=== PATIENT | female | born 1950 | race Caucasian/White ===

== ENCOUNTER → 2018-08-04 | Outpatient (CLI) | payer OTHER ==
--- NOTE | 2018-08-04 16:31 | US ---
EXAM DESCRIPTION: Breast,Right: Ultrasound CLINICAL HISTORY: 68 yearsFemaleLUMP IN BREAST anterior right breast superior. COMPARISON: Bilateral digital breast tomosynthesis, diagnostic type mammogram on this visit. TECHNIQUE: Transcutaneous scanning of the anterior right breast utilizing hines-scale and Doppler modes. Skin marker on the region of interest. Scanning performed by the manufacturing engineer chief and Dr. Lepe. FINDINGS: Scanning of the anterior right breast with emphasis on the 1200 clock position 4 cm from the nipple. This is where the skin marker is located. Mostly heterogeneous fibroglandular echotexture. Posterior to the marker are large calcifications with significant acoustic shadowing. These correspond to a large group of large coarse calcifications in the superior central right breast. No distinct solid mass or cyst. No parenchymal edema. No overlying skin changes. No abnormal vascularity. IMPRESSION: 1. Bi-Rads Category 2: Benign. 2. Please refer to bilateral diagnostic digital breast tomosynthesis mammogram and report on this visit. The FINDINGS and the FOLLOW-UP plan were reviewed in person with the patient after the examination. Written communication explaining the IMPRESSION and FOLLOW-UP will be mailed to the patient and referring care provider. Electronically signed by: Shawn Lepe MD 08/04/2018 4:30 PM CDT
--- NOTE | 2018-08-04 16:40 | MAM ---
EXAM DESCRIPTION: 3D Diagnostic, Bilateral: Digital Mammography CLINICAL HISTORY: 68 yearsFemaleUNSPECIFIED LUMP IN BREAST . Palpable mass superior anterior right breast.. No personal history or family history of breast cancer. Childbirth. Postmenopausal. Currently on HRT. Prior cyst aspiration and benign biopsy left breast. Lifetime risk of developing breast cancer (Tyrer-Cuzick model) percentage is 6.8 COMPARISON: Prior 2-D digital screening study 09/30/2016.. Targeted right breast ultrasound if this examination.. TECHNIQUE: Bilateral CC LM MLO projection full-field images, digital mammographic tomosynthesis technique. CAD not utilized. Skin marker superior lateral anterior right breast. FINDINGS: The breast parenchymal density pattern is: Heterogeneously dense breast tissue, which may obscure small masses. No skin thickening or nipple retraction Large cluster of coarse calcifications at the 1200 clock position of the right breast posterior third approximately 8 to 10 cm from the nipple. Stable since the prior study. Second large posterior closer to the axillary tail of the breast has increased in number since the prior study. Multiple solitary coarse calcifications in the left breast. Right breast is denser than the left. Slight increase in coarse calcifications on the left as well. Bilateral nodules are fatty density mixed with the dense fibroglandular tissues. No new focal, stellate mass or density, focal asymmetry , and no suspicious microcalcifications bilaterally. ULTRASOUND: Scanning of the anterior right breast with emphasis on the 1200 clock position 4 cm from the nipple. This is where the skin marker is located. Mostly heterogeneous fibroglandular echotexture. Posterior to the marker are large calcifications with significant acoustic shadowing. These correspond to a large group of large coarse calcifications in the superior central right breast. No distinct solid mass or cyst. No parenchymal edema. No overlying skin changes. No abnormal vascularity. IMPRESSION: Benign exam. BIRAD CATEGORY: 2 BENIGN FINDINGS. RECOMMENDATIONS: FOLLOW UP: Routine digital bilateral screening, one year interval from August 2018. The FINDINGS and the FOLLOW-UP plan were reviewed in person with the patient after the examination. Written communication explaining the IMPRESSION and FOLLOW-UP will be mailed to the patient and referring care provider. According to the [employer], yearly mammograms are recommended starting at age 40 and continuing as long as a woman is in good health. Any breast change noted on a breast self-exam should be reported promptly to the patient's healthcare provider. Breast MRI is recommended for women with an approximately 20-25% or greater lifetime risk of breast cancer, including women with a strong family history of breast or ovarian cancer and women who have been treated for Hodgkin's disease. A negative mammographic report should not delay tissue diagnosis in patients with significant clinical history or physical findings. Extremely dense breast tissue limits the sensitivity of digital mammography. Electronically signed by: Shawn Lepe MD 08/04/2018 4:39 PM CDT
== END ==
LOC: MAMMO 11:02
PROVIDERS: ATTEND Obstetrics & Gynecology
DX: N63.11 Unspecified lump in the right breast, upper outer quadrant (principal)
CPT/HCPCS: 76641; 77066; G0279

== ENCOUNTER 2018-10-14 10:00 | Inpatient (IN) | payer OTHER ==
[2018-10-14] MEDS ORDERED: SODIUM CHLORIDE 0.9% 1000ML 1,000 ML IVS ONE (10:16)
--- NOTE | 2018-10-14 10:19 | ED.PDOC ---
History of Present Illness - General Chief Complaint: GI Problem Stated Complaint: Nausea Time Seen by Provider: 10/14/18 10:02 Information Source: patient, EMS Exam Limitations: no limitations - History of Present Illness Initial Comments: patient comes in for severe nausea and "just not feeling well" via EMS. Patient had ankle surgery 8 days ago and since then has been on pain medications and had been tried on a medication for nausea. Patient states her pain is moderate at this time even on the pain medication but was told that she couldn't stop the medicine. She is having a difficult time with constipation and last bowel movement was 2-3 days ago. Patient states she has generalized abdominal discomfort and just feels awful. She has not been eating well but has had no emesis. She states she is having severe nausea. Patient does not have any fever, chills, cough or cold symptoms. She doesn't have any chest pain or shortness of breath. Patient has a difficult time giving a complete history and often gets distracted and will ask for her to answer the questions although he is not currently here she states when he gets here he'll no Y her medicines are and where her medical problems are. Patient is able to say that she has high blood pressure, cholesterol, thyroid, and GERD. Patient is unsure of the medication she is taking for pain or the medicine for nausea that "made the symptoms worse". Patient was seen by her orthopedic doctor on Wednesday at that time he felt like she was healing well. She cannot say why she had ankle surgery but knows she did not have a fracture and does not have osteoarthritis. Abdominal Pain Onset Location: generalized abdomen Pain Radiation: no radiation Quality: mild Timing/Duration: 1 week Improving Factors: nothing Worsening Factors: nothing Associated Symptoms: nausea/vomiting Review of Systems - Review of Systems Constitutional: States: weakness. Denies: chills, fever EENTM: States: no symptoms reported. Denies: blurred vision, ear pain, nose pain, throat pain Respiratory: States: no symptoms reported. Denies: cough, short of breath, wheezing Cardiology: States: no symptoms reported. Denies: chest pain, edema, palpitations Gastrointestinal/Abdominal: States: see HPI, constipation, nausea Genitourinary: States: no symptoms reported. Denies: discharge, dysuria, frequency, hematuria Musculoskeletal: States: see HPI Past Medical History (General) - Patient Medical History Hx Stroke: No Hx Congestive Heart Failure: No Hx Hypertension: Yes Hx Thyroid Disease: Yes Hx Diabetes: Yes Hx Gastroesophageal Reflux: Yes - Vaccination History Hx Tetanus, Diphtheria Vaccination: No Hx Influenza Vaccination: No Hx Pneumococcal Vaccination: No - Social History Hx Tobacco Use: No Family Medical History - Family History Mother Family History: No Known Living Status: Physical Exam - Physical Exam General Appearance: Alert, Anxious Eyes, Ears, Nose, Throat Exam: PERRL/EOMI, normal ENT inspection, TMs normal, pharynx normal Neck: non-tender, full range of motion, supple, normal inspection Respiratory: chest non-tender, lungs clear, normal breath sounds Cardiovascular/Chest: normal peripheral pulses, regular rate, rhythm, no edema, no murmur Peripheral Pulses: No deficit Gastrointestinal/Abdominal: normal bowel sounds, non tender, soft, no organomegaly, no pulsatile mass Extremity: other - L ankle with healing incision to above the lateral malleolus no erythema, no edema, no calor Neurologic: alert, oriented x 3 Progress - Progress Progress: 10/14/18 10:51 after patient's arrived and some IVF patient is much more focused. Her brings medication list and she has been on hydrocodone and zofran since the surgery. Patient's last dose was last night and she states she does not need or want anything for pain just to help with the nausea. 10/14/18 12:01 patient with severe hyponatremia, doing better after IV 3%NS but will NA of 119 will admit. - Results/Orders Results/Orders: Patient Name: MARIA M BRIZUELA Gender: Female Date of : 1950 Referring Physician: TITO CORDERO Organization: [facility] Accession Number: [id number] Requested Date: October 14, 2018 10:16 Report Status: Final Requested Procedure: 1 Procedure Description: Abdomen Flat Upright Modality: CR Findings Reporting MD: Genaro López Fellow MD: Not available Dictation Time: Bridge Ironworker Helper: Not available Octave Board Racker Date: EXAM DESCRIPTION: Abdomen Flat Upright CLINICAL HISTORY: 68 years Female, nausea/pain COMPARISON: None. FINDINGS: There is no free subdiaphragmatic gas or intra-abdominal air-fluid level. There is a moderate amount of colonic stool and gas. No dilated small bowel loops. A few small pelvic calcifications probably represent phleboliths. No concerning bone lesion. IMPRESSION: Moderate amount of colonic stool and gas without obstruction or pneumoperitoneum. Probable pelvic phleboliths. If clinically suspicious of a ureteral calculus, noncontrast CT should be considered. 10/14/18 10:16 URINALYSIS Stat 10/14/18 10:30 EKG STAT Laboratory Results WBC 5.9 K/mm3 (4.8-10.8) 10/14/18 10:30 RBC 4.86 M/mm3 (4.20-5.40) 10/14/18 10:30 Hgb 16.1 gm/dL (12.0-16.0) H 10/14/18 10:30 Hct 45.2 % (36.0-47.0) 10/14/18 10:30 MCV 93.0 fl (81.0-99.0) 10/14/18 10:30 MCH 33.1 pg (27.0-31.0) H 10/14/18 10:30 MCHC 35.6 g/dL (33.0-37.0) 10/14/18 10:30 RDW 12.1 % (11.5-14.5) 10/14/18 10:30 Plt Count 428 K/mm3 (130-400) H 10/14/18 10:30 MPV 6.3 fl (7.40-10.4) L 10/14/18 10:30 Absolute Neuts (auto) 4.20 K/uL (1.8-6.8) 10/14/18 10:30 Absolute Lymphs (auto) 1.00 K/uL (1.0-3.4) 10/14/18 10:30 Absolute Monos (auto) 0.60 K/uL (0.2-0.8) 10/14/18 10:30 Absolute Eos (auto) 0.00 K/uL (0.0-0.4) 10/14/18 10:30 Absolute Basos (auto) 0.10 K/uL (0.0-0.1) 10/14/18 10:30 Neutrophils % 70.5 % (42.0-78.0) 10/14/18 10:30 Lymphocytes % 17.0 % (20.0-50.0) L 10/14/18 10:30 Monocytes % 10.9 % (2.0-9.0) H 10/14/18 10:30 Eosinophils % 0.7 % (1.0-5.0) L 10/14/18 10:30 Basophils % 0.9 % (0.0-2.0) 10/14/18 10:30 Sodium 119 mmol/L (135-145) L* 10/14/18 10:30 Potassium 3.3 mmol/L (3.6-5.0) L 10/14/18 10:30 Chloride 80 mmol/L (101-111) L 10/14/18 10:30 Carbon Dioxide 24 mmol/L (21-31) 10/14/18 10:30 Anion Gap 18.3 (12-18) H 10/14/18 10:30 BUN 6 mg/dL (7-18) L 10/14/18 10:30 Creatinine 0.51 mg/dL (0.6-1.3) L 10/14/18 10:30 BUN/Creatinine Ratio 11.8 (10-20) 10/14/18 10:30 Random Glucose 112 mg/dL (70-105) H 10/14/18 10:30 Serum Osmolality 238.7 mOsm/L (275-295) L* 10/14/18 10:30 Calcium 9.5 mg/dL (8.4-10.2) 10/14/18 10:30 Total Bilirubin 1.0 mg/dL (0.2-1.0) 10/14/18 10:30 AST 29 IU/L (10-42) 10/14/18 10:30 ALT 25 IU/L (10-60) 10/14/18 10:30 Alkaline Phosphatase 53 IU/L (42-121) 10/14/18 10:30 Creatine Kinase 47 IU/L (26-140) 10/14/18 10:30 CK-MB (CK-2) 0.8 ng/mL (0.0-4.4) 10/14/18 10:30 CK-MB (CK-2) % Not Reportable 10/14/18 10:30 Troponin I < 0.02 ng/mL (0.01-0.05) 10/14/18 10:30 Serum Total Protein 7.9 gm/dL (6.4-8.2) 10/14/18 10:30 Albumin 4.8 g/dl (3.2-5.5) 10/14/18 10:30 Globulin 3.1 gm/dL (2.3-3.5) 10/14/18 10:30 Albumin/Globulin Ratio 1.5 (1.1-1.9) 10/14/18 10:30 - EKG/XRAY/CT EKG: Sinus, no ST T wave changes Comments: slight left axis deviation HR of 74 with mild prolongation QTC 492 Departure - Departure Clinical Impression: Hyponatremia Disposition: Admit Patient Departure Forms: ED Discharge - Pt. Copy, Patient Portal Self Enrollment Referrals: Patricio Self MD [Primary Care Provider] - 1-2 Weeks Home Medications: Ambulatory Orders Dexlansoprazole [Dexilant] 60 mg PO DAILY 10/14/18 Estradiol [Estrace] 1 mg PO DAILY 10/14/18 Hydrocodone-Acetaminophen [[place] 7.5-325 mg] 1 tab PO Q6HR PRN 10/14/18 Levothyroxine Sodium 25 mcg PO DAILY 10/14/18 Medroxyprogesterone Acetate [Medroxyprogesterone Aceta] 2.5 mg PO DAILY 10/14/18 Metformin HCl 500 mg PO DAILY 10/14/18 Ondansetron [Ondansetron Odt] 4 mg SL Q8H PRN 10/14/18 Pravastatin Sodium 20 mg PO DAILY 10/14/18 Quetiapine Fumarate 100 mg PO BEDTIME 10/14/18 Decision To Admit - Decistion To Admit Decision to Admit Reason: Admit from ER Decision to Admit Date: 10/14/18 Decision to Admit Time: 12:02
--- NOTE | 2018-10-14 10:45 | RAD ---
EXAM DESCRIPTION: Abdomen Flat Upright CLINICAL HISTORY: 68 years Female, nausea/pain COMPARISON: None. FINDINGS: There is no free subdiaphragmatic gas or intra-abdominal air-fluid level. There is a moderate amount of colonic stool and gas. No dilated small bowel loops. A few small pelvic calcifications probably represent phleboliths. No concerning bone lesion. IMPRESSION: Moderate amount of colonic stool and gas without obstruction or pneumoperitoneum. Probable pelvic phleboliths. If clinically suspicious of a ureteral calculus, noncontrast CT should be considered. Electronically signed by: Genaro López MD 10/14/2018 10:44 AM [facility]
[2018-10-14] MEDS ORDERED: METOCLOPRAMIDE HCL INJ 10 MG/2 ML VIAL IV ONE (10:51)
[2018-10-14] MEDS ORDERED: SOD CHL 3% *HYPERTONIC* 500ML 100 ML IVS ONE (11:23)
--- NOTE | 2018-10-14 12:14 | HP ---
SUPERVISING PHYSICIAN: Elias Zimmerman M.D. CHIEF COMPLAINT: Nausea and confusion. HISTORY OF PRESENT ILLNESS: This is a 68 year-old female patient who came to the Emergency Room via EMS for severe nausea and just not feeling well. She had ankle surgery in [place] approximately 7 to 8 days ago and since that time she has been on pain medication and a medication for nausea. Her pain was moderate at that time but she was told that she could not stop the medication. She also had some complaints of constipation. While in the Emergency Room she was confused and often could not answer questions asked of her. She could not remember the reason she had ankle surgery and her had to answer many of her questions. She could say that she had high blood pressure, high cholesterol, hypothyroidism and acid reflux. She was unsure of the medications but they just seemed to make it worse. Although she was very nauseated and she could not stomach food, she only vomited 2 or 3 times. She was unable to take fluids. She has become more and more confused as well as weaker and weaker. She has not had any weightbearing on her left foot for 4 weeks. In the Emergency Room an abdominal x-ray was done which showed a moderate amount of colonic stool and gas without obstruction or pneumoperitoneum with probable pelvic phleboliths. If clinically suspicious of ureteral calculus, noncontrast CT should be considered. Lab was done and her sodium was 119 with potassium 3.3, chloride 80, anion gap 18.3, BUN 6, creatinine 0.51, glucose 112, serum osmolality 238.7. Cardiac enzymes were negative. Liver enzymes were within normal limits. CBC was basically within normal limits. Hemoglobin was high at 16.1. In the Emergency Room she was given some hypertonic saline as well as a liter of fluid. I was called for hospital admission. After her admission to the floor and after she received her hypertonic saline, she no longer has any confusion. She has had no nausea since she has been admitted to the floor. She has required no pain medications or antiemetics. PAST MEDICAL HISTORY: 1. Hypertension. 2. Hyperlipidemia. 3. Hypothyroidism. 4. Diabetes mellitus type 2. 5. Gastroesophageal reflux disease. PAST SURGICAL HISTORY: 1. Left ankle surgery approximately a week ago. 2. Tonsillectomy. OUTPATIENT MEDICATIONS: 1. Dexilant. 2. Zofran. 3. Estradiol. 4. Hydrocodone. 5. Levothyroxine. 6. Medroxyprogesterone. 7. Metformin. 8. Pravastatin. 9. Quetiapine Fumarate. ALLERGIES: NO KNOWN DRUG ALLERGIES. SOCIAL HISTORY: She lives at [facility]. She denies any tobacco use. She drinks alcohol socially and she denies any illicit drug use. REVIEW OF SYSTEMS: GENERAL: Denies fever, fatigue or weight changes. HEENT: Negative for vision changes, ear pain, sore throat or sinus symptoms. RESPIRATORY: Negative for coughing, wheezing or shortness of breath. CARDIAC: Negative for chest pain, palpitations or tachycardia. GASTROINTESTINAL: As per History of Present Illness including constipation and nausea. GENITOURINARY: Negative for dysuria, hematuria or polyuria. MUSCULOSKELETAL: Positive for weakness as well as recent left ankle surgery. Negative for myalgias or arthralgias. SKIN: Negative for lesions or rashes. PHYSICAL EXAMINATION: VITAL SIGNS: Temperature 98.4, heart rate 76, blood pressure 119/70, respiratory rate 20, O2 sat is 97% on room air. GENERAL: This is a 68 year-old female patient who is lying in her hospital bed. She is in no acute distress. HEENT: Normocephalic and atraumatic. Pupils are equal and reactive. Oropharynx is dry. NECK: Supple without mass. RESPIRATORY: Clear to auscultation bilaterally. CHEST: There is equal rise and fall of the chest with inspiration and expiration. CARDIOVASCULAR: Regular rate and rhythm. GASTROINTESTINAL: Abdomen is soft, nondistended, non-tender. Bowel sounds are positive. EXTREMITIES: She has a left ankle with a healing incision to above the lateral malleolus. No erythema. No edema. Right lower extremity has no cyanosis, clubbing, or edema. NEUROLOGIC: She is awake, alert and oriented times three. LABORATORY: Followup labs after she came to the floor showed sodium 127, potassium 3.3, chloride 95, anion gap 10.3, BUN less than 5, creatinine 0.51, glucose 125, serum osmolality 253.3, calcium 8.3, magnesium 1.5. All other labs and films are per the History of Present Illness and the EMR and have been reviewed. ASSESSMENT: 1. Severe hyponatremia most likely secondary to poor oral intake, medications and the severe nausea with occasional vomiting. 2. Severe nausea, dehydration and occasionally emesis most likely secondary to pain medications. 3. Recent left ankle surgery approximately 1 week ago. 4. Gastroesophageal reflux disease. 5. Diabetes mellitus type 2. 6. Hypertension. 7. Hypothyroidism. 8. Constipation. 9. Mild hypokalemia and hypomagnesemia. PLAN: We will admit the patient to the hospital. She will be on fluid restrictions. She has gotten normal saline with potassium running at 125 mL per hour. She has had no complaints of nausea since being in the hospital and she has tolerated her food without difficulty, but we have antiemetics as needed. I initially had consulted Physical Therapy for her ankle but she said there is no weightbearing and she was very hesitant to have any therapy on it, so I have discontinued that. Will reevaluate in the morning. She has a PPI for ulcer prophylaxis. I have done blood sugars a.c. and h.s. with sliding scale Humalog insulin coverage. I have restarted her home medications. I have also given her some Milk of Magnesia for the constipation and put her on daily MiraLAX. She received 2 grams of magnesium replacement. There is potassium in her IV fluids. I will recheck her labs in the morning. I have also put her on Lovenox for DVT prophylaxis. Will continue to monitor her closely and follow as needed. Dr. Zimmerman is the collaborating physician available for consultation. #[id number] [facility]
[2018-10-14] MEDS ORDERED: SODIUM CHLORIDE 0.9% 1000ML 1,000 ML IVS PRN (13:06)
[2018-10-14] MEDS ORDERED: ONDANSETRON INJ 4 MG/2 ML VIAL IV PRN (14:47)
[2018-10-14] MEDS ORDERED: SODIUM CHLORIDE 0.9% (FLUSH) 10 ML SYG IV PRN (14:47)
[2018-10-14] MEDS ORDERED: HYDROcodone 7.5MG/APAP 325MG 1 EA TAB PO PRN (14:50)
[2018-10-14] MEDS ORDERED: GLUCAGON INJ 1 MG VIAL SUBCU PRN (14:51)
[2018-10-14] MEDS ORDERED: DEXTROSE 50% 25 GM/50 ML SYG IV PRN (14:51)
[2018-10-14] MEDS ORDERED: MAGNESIUM SULFATE PREMIX 2GM 2 GM in PREMIX BAG 1 BAG IVPB ONE (15:45)
[2018-10-14] MEDS ORDERED: MAGNESIUM SULFATE PREMIX 2GM 50 ML IVPB ONE (16:37)
[2018-10-14] MEDS: PANTOPRAZOLE SODIUM IV 40 MG VIAL IV SCH (17:10)
[2018-10-14] MEDS: KCL 20 MEQ/NS 1,000 ML IVS PRN (17:11)
[2018-10-14] MEDS: ENOXAPARIN SODIUM 40 MG/0.4 ML SYG SUBCU SCH (17:26)
[2018-10-14] MEDS ORDERED: MAGNESIUM HYDROXIDE 30 ML UD PO ONE (19:46)
[2018-10-14] MEDS: QUEtiapine FUMARATE 100 MG TAB PO SCH (21:11)
[2018-10-14] MEDS: PRAVASTATIN SODIUM 20 MG TAB PO SCH (21:11)
[2018-10-14] MEDS: INSULIN LISPRO 100 UNITS/ML PEN SUBCU SCH (21:16)
[2018-10-14] MEDS: IV SET AND CAP CHANGE INJ INJ SCH (21:44)
[2018-10-15] MEDS: INSULIN LISPRO 100 UNITS/ML PEN SUBCU SCH ×5 (00:58→21:27)
[2018-10-15] MEDS: KCL 20 MEQ/NS 1,000 ML IVS PRN ×2 (02:25→10:50)
[2018-10-15] MEDS: PANTOPRAZOLE SODIUM IV 40 MG VIAL IV SCH (05:52)
[2018-10-15] MEDS ORDERED: POTASSIUM CHLORIDE 20 MEQ TAB PO ONE (08:52)
[2018-10-15] MEDS ORDERED: metFORMIN HCL 500 MG TAB PO SCH (09:00)
[2018-10-15] MEDS: POLYETHYLENE GLYCOL 3350 17 GM PCKT PO SCH (09:30)
[2018-10-15] MEDS: ESTRADIOL TAB 1 MG PO SCH (09:30)
[2018-10-15] MEDS: medroxyPROGESTERone ACETATE 5 MG TAB PO SCH (09:30)
[2018-10-15] MEDS: LEVOTHYROXINE SODIUM 0.025 MG TAB PO SCH (09:30)
[2018-10-15] MEDS: metFORMIN HCL 500 MG TAB PO SCH (09:30)
[2018-10-15] MEDS ORDERED: DOXYCYCLINE HYCLATE CAP 100 MG CAP PO SCH (12:00)
--- NOTE | 2018-10-15 13:49 | PN ---
DATE: 10/15/18 SUPERVISING PHYSICIAN: Elias Zimmerman M.D. SUBJECTIVE: The patient is up on bedside commode. She has been having loose stools after her Milk of Magnesia dose yesterday. She says she has had no urine since the shift engineer, but she also does not know when she is having a bowel movement and has had to be cleaned up multiple times. We discussed that she may need a Ennis catheter and that we will place one of those to watch her input and output closely. She agreed to that. Otherwise she has had no nausea or vomiting, chest pain or shortness of breath. OBJECTIVE: VITAL SIGNS: Temperature 97.5, heart rate 66, blood pressure 147/85, respiratory rate 21, O2 sat 94% on room air. RESPIRATORY: Essentially clear to auscultation bilaterally. CARDIAC: Regular rate and rhythm. ABDOMEN: Soft. It is slightly distended. It is non-tender. Bowel sounds are positive. NEUROLOGIC: She is awake, alert and oriented times three. LABORATORY: CBC is basically within normal limits. Blood sugars have run between 100 and 161. Sodium 129, potassium 3.2, chloride 99, BUN less than 5, creatinine 0.48. Calcium 8.1, magnesium 1.9. All other labs and films have been reviewed via the EMR. ASSESSMENT: 1. Severe hyponatremia most likely secondary to poor oral intake, medications and the severe nausea with occasional vomiting. It has improved. 2. Severe nausea, dehydration and occasional emesis most likely secondary to pain medications that has improved. 3. Recent left ankle surgery approximately 1 week ago. 4. Gastroesophageal reflux disease. 5. Diabetes mellitus type 2. 6. Hypertension. 7. Hypothyroidism. 8. Constipation. 9. Mild hypokalemia and hypomagnesemia. She continue with mild hypokalemia but her hypomagnesemia has resolved. PLAN: We will continue present supportive care. She will continue on fluid restrictions. She had Milk of Magnesia with complaints of constipation from yesterday and has had multiple bowel movements, but she thinks she has not voided. I will place a Ennis catheter and we will watch her close I and O until tomorrow, and at that time we will discontinue her Ennis. I have given her some oral potassium replacement and she has tolerated her diet without any problems. Later this afternoon I will discontinue her IV fluids. I have ordered lab for in the morning and hopefully she can be discharged in the next day or two. Will continue to monitor closely and follow as needed. Dr. Zimmerman is the collaborating physician available for consultation. #[id number] [facility]
[2018-10-15] MEDS: ENOXAPARIN SODIUM 40 MG/0.4 ML SYG SUBCU SCH (15:38)
[2018-10-15] MEDS: QUEtiapine FUMARATE 100 MG TAB PO SCH (20:41)
[2018-10-15] MEDS: PRAVASTATIN SODIUM 20 MG TAB PO SCH (20:41)
[2018-10-16] MEDS: PANTOPRAZOLE SODIUM IV 40 MG VIAL IV SCH (06:02)
--- NOTE | 2018-10-16 07:13 | CT ---
PROCEDURE: CT Abdomen and Pelvis Without Intravenous Contrast CLINICAL INDICATION: The patient is 68 years old and is Female; Urinary Retention TECHNIQUE: Axial computed tomography images of the abdomen and pelvis without intravenous contrast. Sagittal and coronal reformatted images were created and reviewed. This CT exam was performed using one or more of the following dose reduction techniques: automated exposure control, adjustment of the mA and/or kV according to patient size, and/or use of iterative reconstruction technique. COMPARISON: None. FINDINGS: LUNG BASES: Minimal subsegmental atelectasis at the lung bases. ABDOMEN: LIVER: Normal. GALLBLADDER AND BILE DUCTS: Normal. No calcified stones. No ductal dilation. PANCREAS: Normal. No ductal dilation. SPLEEN: Normal. No splenomegaly. ADRENALS: Normal. No mass. KIDNEYS AND URETERS: Normal. No obstructing stones. No hydronephrosis. STOMACH AND BOWEL: Moderate amount of stool at the rectosigmoid. Nonspecific small amount of fluid surrounding the rectosigmoid without wall thickening. Cannot exclude mild nonspecific colitis. No obstruction. PELVIS: APPENDIX: No findings to suggest acute appendicitis. BLADDER: Bladder is decompressed with Ennis catheter in place. No stones. REPRODUCTIVE: Unremarkable as visualized. ABDOMEN and PELVIS: BONES/JOINTS: Mild spine degenerative changes with disc height loss and facet arthrosis. Grade 1 anterolisthesis of L4 on L5, likely degenerative. No acute fracture. No dislocation. SOFT TISSUES: Normal. VASCULATURE: Scattered atherosclerotic vascular calcifications. No abdominal aortic aneurysm. LYMPH NODES: Normal. No enlarged lymph nodes. IMPRESSION: 1. Bladder is decompressed with Ennis catheter in place. 2. Moderate amount of stool at the rectosigmoid. Nonspecific small amount of fluid surrounding the rectosigmoid without wall thickening. Cannot exclude mild nonspecific colitis. Electronically signed by: Faisal Sotelo MD 10/16/2018 7:11 AM [facility]
[2018-10-16] MEDS: INSULIN LISPRO 100 UNITS/ML PEN SUBCU SCH ×4 (07:17→21:30)
[2018-10-16] MEDS: metFORMIN HCL 500 MG TAB PO SCH (08:00)
[2018-10-16] MEDS: POLYETHYLENE GLYCOL 3350 17 GM PCKT PO SCH ×2 (08:21→10:15)
[2018-10-16] MEDS: SODIUM CHLORIDE 0.9% (FLUSH) 10 ML SYG IV SCH ×2 (08:21→20:42)
[2018-10-16] MEDS: ESTRADIOL TAB 1 MG PO SCH (08:21)
[2018-10-16] MEDS: medroxyPROGESTERone ACETATE 5 MG TAB PO SCH (08:21)
[2018-10-16] MEDS: LEVOTHYROXINE SODIUM 0.025 MG TAB PO SCH (08:21)
[2018-10-16] MEDS: HYDROCORT 2.5% CRM (ANUSOL HC) 30 GM TUBE PR PRN ×2 (10:18→15:24)
[2018-10-16] MEDS: HYDROCORTISONE 25 MG SUPPOSITORY PR SCH ×3 (10:19→20:42)
[2018-10-16] MEDS ORDERED: MAGNESIUM HYDROXIDE 30 ML UD PO ONE (13:15)
[2018-10-16] MEDS: ENOXAPARIN SODIUM 40 MG/0.4 ML SYG SUBCU SCH (15:24)
--- NOTE | 2018-10-16 18:52 | CONS ---
DATE OF CONSULTATION: 10/16/18 HISTORY OF PRESENT ILLNESS: The patient is a 68 year-old female who was admitted with nausea and vomiting, found to be hyponatremic along with dehydrated. She is status post surgery on her left ankle approximately 10 days ago and had been home on medication for pain and nausea. She also has complaints of constipation. She was confused but this has resolved with the treatment of her sodium and hydration status. The patient now has gone into urinary retention and complains of pain at the anus, worsened by bowel movements. PAST MEDICAL HISTORY: 1. Hypertension. 2. Hyperlipidemia. 3. Hypothyroidism. 4. Diabetes. 5. Gastroesophageal reflux disease. PAST SURGICAL HISTORY: 1. Tonsillectomy. 2. Ankle surgery. CURRENT MEDICATIONS: 1. Dexilant. 2. Zofran. 3. Estradiol. 4. Hydrocodone. 5. Levothyroxine. 6. Progesterone. 7. Metformin. 8. Pravastatin. 9. Quetiapine fumarate. ALLERGIES: NO KNOWN DRUG ALLERGIES. FAMILY HISTORY: She is the mother of 1 child who is 46. SOCIAL HISTORY: She lives at [facility] with her . She drinks moderately. Does not use tobacco products. REVIEW OF SYSTEMS: Prior to this spell there had been no change in her bowel habits. States she has had a colonoscopy but is probably due a new one. She has had hemorrhoids for a long time and it has not been painful. Denies urinary tract symptoms, chest pain, shortness of breath. PHYSICAL EXAMINATION: VITAL SIGNS: Afebrile, normotensive. GENERAL: The patient is awake, alert and appears to be in no acute distress, but is worried. HEENT: Reveals the sclera to be nonicteric. Mucous membranes are moist. NECK: Without adenopathy. BACK: Without CVA tenderness. CHEST: She has equal symmetrical movement. ABDOMEN: Soft and benign without masses, rebound, guarding or hernias noted. PELVIC AND RECTAL: Examinations are deferred but the examination of her perianal area reveals a hemorrhoid that does not appear to be thrombosed. It is soft and non-tender. LABORATORY: White count 7,000, hemoglobin 12.9 down from 16.1 on admission. She has 74% neutrophils and 335,000 platelets. Sodium 131 this morning, potassium 4.0, creatinine is less than 0.40, blood sugars are in the 110s. CT scan of the abdomen revealed a moderate amount of stool, including in the rectal vault and this was after several bowel movements from Milk of Magnesia yesterday. There are no dilated loops of bowel. No inflammatory changes in the abdomen other than a small amount of fluid surrounding the rectosigmoid without wall thickening. IMPRESSION: 1. Status post ankle surgery with obstipation probably narcotic induced likely an anal fissure, although the examination was not completed due to the patient's discomfort. 2. Urinary retention probably secondary to pain from the anal area. RECOMMENDATIONS: Continue catharsis from above. Local treatment to include sitz baths and when the pain is controlled and she has had a significant decrease in her stool, would then attempt removing the catheter. This will probably resolve spontaneously. The patient will need an examination probably along with a colonoscopy when her symptoms have resolved perianally. #[id number] [facility]
--- NOTE | 2018-10-16 19:54 | PN ---
DATE: 10/16/18 SUPERVISING PHYSICIAN: Elias Zimmerman M.D. SUBJECTIVE: The patient is lying in bed. She is somewhat tearful. She complains of hurting with any bowel movement. Her abdominal x-ray on admission showed her to be severely constipated. She was given Milk of Magnesia yesterday. She had multiple liquid stools. She said she has a hemorrhoid that is really bothering her. She has no other complaints other than the rectal pain. I reviewed her abdominal CT scan and told her that I would consult Dr. Fong about the hemorrhoid as well as her abdominal pain. Otherwise she denied chest pain, shortness of breath, nausea or vomiting. She actually has been tolerating a small amount of her regular diet without any problems. OBJECTIVE: VITAL SIGNS: She is afebrile, heart rate 74, blood pressure 147/72, respiratory rate 18, O2 sat 98% on room air. RESPIRATORY: Essentially clear to auscultation bilaterally. CARDIAC: Regular rate and rhythm. ABDOMEN: Soft. It is mildly diffusely tender most prominently in the suprapubic area. NEUROLOGIC: She is awake, alert and oriented times three. EXTREMITIES: Her left ankle is wrapped. Her bilateral pedal pulses are palpable at +2. LABORATORY: WBCs are normal at 7 with hemoglobin 12.9, hematocrit 37.2. Sodium 131. The remainder of her electrolytes are within normal limits. Abdomen and pelvis CT shows: 1) Bladder decompressed with Ennis catheter in place. 2) Moderate amount of stool at the rectosigmoid. Nonspecific small amount of fluid surrounding the rectosigmoid without wall thickening. Cannot exclude mild nonspecific colitis. All other labs and films have been reviewed via the EMR. ASSESSMENT: 1. Severe hyponatremia upon admission most likely secondary to poor oral intake, medications and the severe nausea with occasional vomiting. It has improved. 2. Severe nausea, dehydration and occasional emesis on admission most likely secondary to pain medications that has resolved. 3. Urinary retention requiring a Ennis catheter. Dr. Fong has seen the patient and feels that it most likely may be due to abdominal pain as well as the pain from her hemorrhoid as the patient is reluctant to have a bowel movement due to this excessive pain and may be causing her to hold urine. 4. External hemorrhoids, new onset within the past few days most likely secondary to constipation. 5. Recent left ankle surgery approximately 1 week ago. 6. Gastroesophageal reflux disease. 7. Diabetes mellitus type 2 on oral therapy. 8. Hypertension. 9. Hypothyroidism. 10. Constipation that is chronic in nature but has worsened since taking her pain medications. 11. Mild hypokalemia and hypomagnesemia that has resolved. PLAN: We will continue present supportive care. She will continue on her fluid restrictions. I have consulted Dr. Fong and he examined her. He felt that her hemorrhoids were not thrombosed and that her pain may be due to an anal fissure. He has recommended that we give her an additional dose of Milk of Magnesia as she is still quite constipated per CT. Will get an abdominal x-ray in the morning. Dr. Fong feels like that her urinary retention may resolve after her constipation has resolved. She may require an enema at some point but he will be following for that. I will check a BMP in the morning with a magnesium. Hopefully tomorrow we can begin bladder training and we can discontinue the catheter with close followup with her primary care physician as well as she will need a GI referral. She has seen Dr. Solorzano in the past and is due for a colonoscopy. Will continue to monitor closely and follow as needed. Dr. Zimmerman is the collaborating physician available for consultation. #[id number] [facility]
[2018-10-16] MEDS: QUEtiapine FUMARATE 100 MG TAB PO SCH (20:42)
[2018-10-16] MEDS: PRAVASTATIN SODIUM 20 MG TAB PO SCH (20:42)
[2018-10-17] MEDS: PANTOPRAZOLE SODIUM IV 40 MG VIAL IV SCH (06:03)
--- NOTE | 2018-10-17 07:01 | RAD ---
ABDOMEN, SINGLE VIEW. 10/17/2018 CLINICAL HISTORY: Abdominal pain. COMPARISON: 10/14/2018 TECHNIQUE: Two AP upright images of the abdomen. FINDINGS: There is scattered air throughout the small and large bowel. Normal bowel caliber. No evidence of free air. No pathologic ossification within the abdomen. Pelvic phleboliths are present. There is a mild levoconvex lumbar curve. Intact bony pelvis. Imaged lung bases are clear. Normal heart size. IMPRESSION: 1. No acute finding within the abdomen. Electronically signed by: Lynda Peace DO 10/17/2018 7:00 AM [facility]
[2018-10-17] MEDS: INSULIN LISPRO 100 UNITS/ML PEN SUBCU SCH ×3 (07:55→17:23)
[2018-10-17] MEDS: metFORMIN HCL 500 MG TAB PO SCH (08:05)
[2018-10-17] MEDS: HYDROCORTISONE 25 MG SUPPOSITORY PR SCH ×2 (09:10→15:41)
[2018-10-17] MEDS: medroxyPROGESTERone ACETATE 5 MG TAB PO SCH (09:10)
[2018-10-17] MEDS: ESTRADIOL TAB 1 MG PO SCH (09:10)
[2018-10-17] MEDS: POLYETHYLENE GLYCOL 3350 17 GM PCKT PO SCH (09:11)
[2018-10-17] MEDS: SODIUM CHLORIDE 0.9% (FLUSH) 10 ML SYG IV SCH (09:11)
[2018-10-17] MEDS: LEVOTHYROXINE SODIUM 0.025 MG TAB PO SCH (09:14)
[2018-10-17 14:28] VITALS: BP 132/76; TEMP 98.6; O2SAT 97
[2018-10-17] MEDS: ENOXAPARIN SODIUM 40 MG/0.4 ML SYG SUBCU SCH (15:41)
[2018-10-17] MEDS: IV SET AND CAP CHANGE INJ INJ SCH (15:42)
--- NOTE | 2018-10-17 21:50 | DS ---
SUPERVISING PHYSICIAN: Caleb Gordon M.D. ADMISSION DIAGNOSIS: 1. Severe hyponatremia with nausea and vomiting. 2. Severe nausea and vomiting contributing to dehydration. 3. Recent left ankle surgery. 4. Gastroesophageal reflux disease. 5. Diabetes mellitus type 2. 6. Hypertension. 7. Hypothyroidism. 8. Constipation. 9. Mild hypokalemia and hypomagnesemia. DISCHARGE DIAGNOSIS: 1. Severe hyponatremia with nausea and vomiting. 2. Severe nausea and vomiting contributing to dehydration. 3. Recent left ankle surgery. 4. Gastroesophageal reflux disease. 5. Diabetes mellitus type 2. 6. Hypertension. 7. Hypothyroidism. 8. Constipation. 9. Mild hypokalemia and hypomagnesemia. HOSPITAL COURSE: This 68 year-old female came to the [facility] with severe nausea and vomiting and generally not feeling well. She had ankle surgery 7 days prior to the Emergency Room visit. She also had complaints of constipation. In the Emergency Room she was somewhat confused and could not answer all of the questions appropriately. She had a noted sodium of 119 in the Emergency Room. She ended up having a CT scan of the abdomen and pelvis which showed a moderate amount of stool at the rectosigmoid. During the admission she also developed some urinary retention so a Ennis catheter was placed. Dr. Fong was consulted as well. She was given Milk of Magnesia a couple of times and did have some success with bowel movements. She was placed on MiraLAX and also was found to have a significant hemorrhoid. This was treated with Anusol. However after several bowel movements her nausea and vomiting resolved. On the 17 of October her Ennis catheter was discontinued and she was able to urinate without any difficulties after the Ennis catheter was removed. Her hemorrhoid was quite painful and we were unable to perform a full rectal exam at that time. Dr. Fong suggested she possibly has an anal fissure and suggested that each time she feels the urge to have a bowel movement to utilize a glycerine suppository and introduce that to the rectum with lidocaine jelly. Also continue the MiraLAX daily. The effort is to have soft bowel movements with no straining. He suggested that she have a colonoscopy in the near future if possible. The patient is still on no weightbearing due to her ankle surgery. This was a total of 6 weeks so she is only about 10 days into this. PLAN: She has a followup appointment with her surgeon actually today, but due to the fact that she was in the hospital it has to be rescheduled. Her diet will be unchanged. Activity is bedrest per her surgeon's instructions. I have written prescriptions for MiraLAX and Anusol, glycerine suppository as well as Lidocaine jelly. To followup with her primary care physician, Dr. Self, next week if possible. #[id number] [facility]
== END 2018-10-17 17:10 | disposition home or self-care (01) | DRG 641 ==
LOC: ER 10:00 → MS 12:12
PROVIDERS: ADMIT Nurse Practitioner Acute Care; ATTEND Nurse Practitioner
DX: E87.1 Hypo-osmolality and hyponatremia (principal); I10 Essential (primary) hypertension; E03.9 Hypothyroidism, unspecified; E11.9 Type 2 diabetes mellitus without complications; K21.9 Gastro-esophageal reflux disease without esophagitis; E78.5 Hyperlipidemia, unspecified; E86.0 Dehydration; K59.00 Constipation, unspecified; E87.6 Hypokalemia; E83.42 Hypomagnesemia; T40.2X5A Adverse effect of other opioids, initial encounter; K64.4 Residual hemorrhoidal skin tags; R33.9 Retention of urine, unspecified; K60.2 Anal fissure, unspecified; Z79.84 Long term (current) use of oral hypoglycemic drugs

== ENCOUNTER 2019-12-11 07:24 | Observation (INO) | payer OTHER ==
[2019-12-11] MEDS ORDERED: ASPIRIN TABLET 325 MG TAB PO ONE (07:40)
--- NOTE | 2019-12-11 08:16 | RAD ---
EXAM DESCRIPTION: Chest,1 View CLINICAL HISTORY: 69 years Female, chest pain, sob COMPARISON: None. TECHNIQUE: AP portable chest. FINDINGS: Heart size is normal with normal pulmonary vascularity. No consolidating infiltrate. No pulmonary mass or worrisome nodule. No pneumothorax or pleural effusion. Bones are unremarkable. IMPRESSION: No acute process is identified in the chest. Electronically signed by: Jorge Cabral MD 12/11/2019 8:15 AM [employer]
[2019-12-11] MEDS ORDERED: SOD CHL 3% *HYPERTONIC* 500ML 200 ML IVS ONE (08:20)
--- NOTE | 2019-12-11 09:06 | ED.PDOC ---
History of Present Illness - General Chief Complaint: Chest Pain/HI Stated Complaint: chest pain,arm pain,shakiness Time Seen by Provider: 12/11/19 07:26 Source: patient Exam Limitations: no limitations - History of Present Illness Initial Comments: The patient is a 69-year-old female presented emergency room with her secondary to the patient complaining of some very mild chest discomfort along with some shortness of breath this morning. She is also obviously a little bit confused as to where she is and what is going on. She is mixing up timeframes. She is very anxious. She is tremulous. Her gait is somewhat unsteady as well. She took Effexor sometime during the night to help her sleep but she has not taken this medication before. She does take Seroquel and she does take a antihistamine at night to help her sleep. The patient has had significant hyponatremia in the past and has had to be hospitalized for it before. Symptoms are somewhat similar to a previous episode. She denies any history of any cardiac problems. No syncope. No obvious trauma. She is slightly hyperventilating. Timing/Duration: unsure Severity: moderate Improving Factors: nothing Worsening Factors: nothing Associated Symptoms: loss of appetite, malaise, shortness of breath, weakness Allergies/Adverse Reactions: Allergies NO KNOWN ALLERGY Allergy (Verified 10/14/18 10:06) Home Medications: Ambulatory Orders Estradiol [Estrace] 1 mg PO DAILY 10/14/18 Medroxyprogesterone Acetate [Medroxyprogesterone Aceta] 2.5 mg PO DAILY 10/14/18 Metformin HCl [Metformin Hydrochloride] 500 mg PO DAILY 10/14/18 Pravastatin Sodium 20 mg PO DAILY 10/14/18 Quetiapine Fumarate 100 mg PO BEDTIME 10/14/18 Levocetirizine Dihydrochloride [Levocetirizine Dihydrochl] 5 mg PO BEDTIME 12/11/19 Lisinopril & Hydrochlorothiazi [Lisinopril/Hydrochlorothi 20-25 mg] 1 tab PO DAILY 12/11/19 Pravastatin Sodium 20 mg PO DAILY 12/11/19 Review of Systems - Review of Systems Constitutional: States: malaise, weakness - Generalized EENTM: States: no symptoms reported Respiratory: States: short of breath Cardiology: States: chest pain Gastrointestinal/Abdominal: States: no symptoms reported Genitourinary: States: no symptoms reported Musculoskeletal: States: no symptoms reported Skin: States: no symptoms reported Neurological: States: anxiety, other - Confusion Endocrine: States: no symptoms reported All other Systems: No Change from Baseline Past Medical History (General) - Patient Medical History Hx Stroke: No Hx of COPD: No Hx Congestive Heart Failure: No Hx Hypertension: Yes Hx Thyroid Disease: Yes Hx Diabetes: Yes - TAKES PO MEDS Hx Gastroesophageal Reflux: Yes Hx MRSA: No - Vaccination History Hx Tetanus, Diphtheria Vaccination: No Hx Influenza Vaccination: No Hx Pneumococcal Vaccination: No - Social History Hx Tobacco Use: No - Female History Patient is a Female of Child Bearing Age (10 -59 yrs old): No Family Medical History - Family History Mother Family History: No Known Living Status: Physical Exam - Physical Exam General Appearance: Alert, Anxious, No apparent distress Eye Exam: bilateral normal Ears, Nose, Throat: hearing grossly normal, normal pharynx Neck: full range of motion, supple Respiratory: lungs clear, normal breath sounds, no respiratory distress, no accessory muscle use Cardiovascular/Chest: normal peripheral pulses, regular rate, rhythm, no edema Peripheral Pulses: radial,right: 2+, radial,left: 2+, dorsalis pedis,right: 2+, dorsalis pedis,left: 2+ Gastrointestinal/Abdominal: non tender, soft Rectal Exam: deferred Back Exam: no CVA tenderness, no vertebral tenderness Extremity: normal range of motion, non-tender, normal inspection, no pedal edema, normal capillary refill Neurologic: nurses' aide II-XII nml as tested, alert, other - The patient is tremulous. She knows she is at the [facility]. She is unable to recall the timeframe of events last night. She does recognize her . She is obviously confused. She is very anxious. Skin Exam: normal color Comments: Vital Signs - 8 hr 12/11/19 12/11/19 12/11/19 07:53 08:04 08:05 Temperature 97.5 F L Pulse Rate 72 Pulse Rate [ 76 72 Pulse Ox] Respiratory 20 Rate Blood Pressure 177/98 [L Arm] O2 Sat by Pulse 99 Oximetry 12/11/19 08:33 Temperature Pulse Rate Pulse Rate [ 67 Pulse Ox] Respiratory 20 Rate Blood Pressure 153/90 [L Arm] O2 Sat by Pulse 95 Oximetry Progress - Progress Progress: 12/11/19 09:08 The patient is a 69-year-old female presenting to the emergency room with confusion and shortness of breath along with anxiety that appear to be related to significant hyponatremia. This episode does seem to be similar to her previous episode of hyponatremia. She will likely need to come off of the hydrochlorothiazide. Currently being replaced 3% saline at 50 cc/h for a total of 200 cc. She will obviously need a electrolyte recheck after that. Mental status is already improving after a relatively short period of supplementation. No evidence of any heart attack, pulmonary embolus or other acute pathology at this time. We are still awaiting a urinalysis. The patient will be admitted for correction of her symptomatic hyponatremia with metabolic encephalopathy. Outpatient evaluation by endocrinology may prove useful long-term for this patient. Continue to monitor. Vital signs are stable at this time. shelley isaacs [id number] - Results/Orders Results/Orders: Single view chest x-ray shows no acute pathology. See report for details. EKG shows normal sinus rhythm at 81 bpm. There is mild left axis deviation and a mild right bundle branch block. Borderline R wave progression. There are inverted T waves in V1 and V2 as well as lead III. This EKG is consistent with her EKG from October 2018. Laboratory Tests 12/11/19 12/11/19 12/11/19 07:10 07:45 07:45 WBC 5.9 RBC 4.54 Hgb 15.1 Hct 42.9 MCV 94.5 MCH 33.2 H MCHC 35.2 RDW 12.7 Plt Count 360 MPV 6.3 L Absolute Neuts (auto) 4.20 Absolute Lymphs (auto) 1.10 Absolute Monos (auto) 0.40 Absolute Eos (auto) 0.10 Absolute Basos (auto) 0.10 Neutrophils % 72.5 Lymphocytes % 18.8 L Monocytes % 6.6 Eosinophils % 1.2 Basophils % 0.9 PT 9.5 INR < 1.00 PTT (SP) 26.4 D-Dimer, Quantitative < 131 L Sodium 120 L Potassium 3.9 Chloride 83 L Carbon Dioxide 21 Anion Gap 19.9 H BUN < 5 L Creatinine 0.51 L BUN/Creatinine Ratio 9.8 L Random Glucose 115 H Serum Osmolality 240.4 L* Lactic Acid Calcium 9.9 Magnesium 1.7 L Total Bilirubin 0.8 AST 21 ALT 15 Alkaline Phosphatase 47 Creatine Kinase 76 CK-MB (CK-2) 1.4 CK-MB (CK-2) % Not Reportable Troponin I < 0.02 B-Natriuretic Peptide 74.9 Serum Total Protein 8.2 Albumin 5.2 Globulin 3.0 Albumin/Globulin Ratio 1.7 TSH 6.24 H 12/11/19 07:45 WBC RBC Hgb Hct MCV MCH MCHC RDW Plt Count MPV Absolute Neuts (auto) Absolute Lymphs (auto) Absolute Monos (auto) Absolute Eos (auto) Absolute Basos (auto) Neutrophils % Lymphocytes % Monocytes % Eosinophils % Basophils % PT INR PTT (SP) D-Dimer, Quantitative Sodium Potassium Chloride Carbon Dioxide Anion Gap BUN Creatinine BUN/Creatinine Ratio Random Glucose Serum Osmolality Lactic Acid 1.8 Calcium Magnesium Total Bilirubin AST ALT Alkaline Phosphatase Creatine Kinase CK-MB (CK-2) CK-MB (CK-2) % Troponin I B-Natriuretic Peptide Serum Total Protein Albumin Globulin Albumin/Globulin Ratio TSH Departure - Departure Clinical Impression: Hyponatremia, Metabolic encephalopathy, Anxiety about health Disposition: Admit Patient Condition: Serious Departure Forms: ED Discharge - Pt. Copy, Patient Portal Self Enrollment Referrals: Patricio Self MD [Primary Care Provider] - 1-2 Weeks Home Medications: Ambulatory Orders Estradiol [Estrace] 1 mg PO DAILY 10/14/18 Medroxyprogesterone Acetate [Medroxyprogesterone Aceta] 2.5 mg PO DAILY 10/14/18 Metformin HCl [Metformin Hydrochloride] 500 mg PO DAILY 10/14/18 Pravastatin Sodium 20 mg PO DAILY 10/14/18 Quetiapine Fumarate 100 mg PO BEDTIME 10/14/18 Levocetirizine Dihydrochloride [Levocetirizine Dihydrochl] 5 mg PO BEDTIME 12/11/19 Lisinopril & Hydrochlorothiazi [Lisinopril/Hydrochlorothi 20-25 mg] 1 tab PO DAILY 12/11/19 Pravastatin Sodium 20 mg PO DAILY 12/11/19 Decision To Admit - Decistion To Admit Decision to Admit Reason: Medical Nature Decision to Admit Date: 12/11/19 Decision to Admit Time: 09:11
--- NOTE | 2019-12-11 09:24 | HP ---
SUPERVISING PHYSICIAN: Beltran Wong MD CHIEF COMPLAINT: Dizziness, confusion. HISTORY OF PRESENT ILLNESS: Ms. Crouch is a 69-year-old female patient that presented to the Emergency Room with her today secondary to the patient complaining of some chest discomfort and shortness of breath initially. She was brought in and noted to be obviously confused as to where she was and what was going on. She was actually mixing up timeframes and was very anxious and tremulous and with a gait that seemed to be unsteady. She does have a past history of being admitted for hyponatremia and takes Seroquel and hydrochlorothiazide. Her notes that her symptoms were similar to this on her last admission. Her lab work did show that she had a significant hyponatremia with a sodium 120, serum osmolality 240 and magnesium 1.7. CBC was essentially unremarkable. Urinalysis unremarkable. Chest x-ray per radiologic interpretation showed no acute process in the chest. She was started on hypertonic saline 3% and is now going to be admitted for treatment of hyponatremia. PAST MEDICAL HISTORY: 1. Hypertension. 2. Hyperlipidemia. 3. Hypothyroidism. 4. Diabetes mellitus, type 2. 5. Gastroesophageal reflux disease. PAST SURGICAL HISTORY: 1. Left ankle surgery approximately 2 years ago. 2. Tonsillectomy. OUTPATIENT MEDICATIONS: 1. Quetiapine fumarate 100 mg at bedtime. 2. Pravastatin 20 mg daily. 3. Metformin 500 mg daily. 4. Medroxyprogesterone 2.5 mg daily. 5. Lisinopril/hydrochlorothiazide 20-25 1 daily. 6. Levocetirizine 5 mg at bedtime. 7. Estradiol 1 mg daily. ALLERGIES: NO KNOWN DRUG ALLERGIES. FAMILY HISTORY: Noncontributory. SOCIAL HISTORY: [place] [facility] [place] [facility]. She denies any alcohol or illicit drug use. She denies any tobacco usage. She is . REVIEW OF SYSTEMS: CONSTITUTIONAL: Positive for general malaise, weakness. HEENT: Negative for sore throats, earaches, nasal congestion, vision changes. RESPIRATORY: Positive for shortness of breath. Denies wheezing or coughing. CARDIOVASCULAR: Positive for chest pain. Denies palpitations or syncopal episodes. GASTROINTESTINAL: Negative for nausea, vomiting, diarrhea. GENITOURINARY: Negative for dysuria, hematuria, polyuria. MUSCULOSKELETAL: Denies joint pain or swelling, muscle aches. SKIN: Denies lesions, rashes, moles or unexplained changes. NEUROLOGIC: She does have anxiety with some confusion as noted in history of present illness. Denies any ataxia, seizures or other neurologic deficits. PHYSICAL EXAMINATION: VITAL SIGNS: Temperature 98, pulse 68, blood pressure 130/84, respirations 16, saturation 98% on room air. GENERAL: The patient is resting comfortably. She is a little anxious, but appears to be in no acute distress. She is alert. RESPIRATORY: Lungs clear to auscultation bilaterally without any rhonchi, wheezes or rales. CARDIOVASCULAR: Regular rate and rhythm without any appreciable murmurs, gallops, or rubs. ABDOMEN: Soft, nontender. Positive bowel sounds. EXTREMITIES: There is no cyanosis, clubbing or edema. NEUROLOGIC: The patient is alert and oriented times three. Cranial nerves II- XII are grossly intact. Facial features are symmetrical. Extraocular movements are within normal limits. There is no nystagmus noted. SKIN: Warm, pink and dry. LABORATORY: White count 5,900, hemoglobin 15.1, hematocrit 42.9, platelet count 360,000. Differential without a left shift. Coagulation studies showed normal PT, PTT and D-dimer. Chemistry showed sodium initially 120 with potassium 3.9, creatinine 0.5, BUN less than 5, serum osmolality 240, magnesium 1.7. Liver functions all within normal limits. Troponin less than 0.02 initially and TSH 6.24. MICROBIOLOGY: Influenza A and B by PCR were negative. RADIOLOGY: Chest x-ray per radiologic interpretation without any significant findings. ASSESSMENT: 1. Moderate hyponatremia with the patient on hydrochlorothiazide, possibly chronic, but etiology uncertain at this point with the patient showing good response with hypertonic saline. 2. Chest pain with no acute findings with the patient actually being without chest pains on admission. 3. Gastroesophageal reflux disease. 4. Diabetes mellitus, type 2. 5. Hypertension. 6. Hypothyroidism. 7. Chronic constipation. 8. Mild hypomagnesemia. PLAN: The patient is going to be admitted for treatment of her hyponatremia. She will be on fluid restrictions of less than 1500 mL per day. She will get initially 200 mL of 3% hypertonic saline. We will recheck her BMP at that time and adjust her IV fluids as needed. She will be on DVT prophylaxis per protocol. I anticipate her length of stay to be 2 to 3 days. She will be on sliding scale insulin per protocol. We will review her home medications and start those back as appropriate to care. She was give magnesium in the Emergency Room and this will be closely followed with labs. Until the patient can transition to outpatient management, we will continue to monitor and treat as needed. #[id number] [facility]
[2019-12-11] MEDS ORDERED: ONDANSETRON INJ 4 MG/2 ML VIAL IV PRN (10:11)
[2019-12-11] MEDS ORDERED: ALUM & MAG HYDROX-SIMETHICONE 30 ML UD PO PRN (10:11)
[2019-12-11] MEDS ORDERED: SODIUM CHLORIDE 0.9% (FLUSH) 10 ML SYG IV PRN (10:11)
[2019-12-11] MEDS ORDERED: ACETAMINOPHEN 325 MG TAB PO PRN (10:11)
[2019-12-11] MEDS ORDERED: IV SET AND CAP CHANGE INJ INJ SCH (10:30)
[2019-12-11] MEDS ORDERED: SOD CHL 3% *HYPERTONIC* 500ML 500 ML IVS ONE (14:37)
[2019-12-11] MEDS: KCL 20 MEQ/NS 1,000 ML IVS PRN (19:12)
[2019-12-11] MEDS ORDERED: ENOXAPARIN SODIUM 40 MG/0.4 ML SYG SUBCU SCH (21:00)
[2019-12-11] MEDS ORDERED: PRAVASTATIN SODIUM 20 MG TAB PO SCH (21:00)
[2019-12-11] MEDS ORDERED: NON-FORMULARY MEDICATION 1 EA MIS (Levocetirizine Dihydrochloride [Levocetirizine Dihydroc PO SCH (21:00)
[2019-12-11] MEDS ORDERED: QUEtiapine FUMARATE 100 MG TAB PO SCH (21:00)
[2019-12-12 00:15] VITALS: TEMP 98
[2019-12-12] MEDS: KCL 20 MEQ/NS 1,000 ML IVS PRN (06:37)
[2019-12-12] MEDS ORDERED: metFORMIN HCL 500 MG TAB PO SCH (07:30)
[2019-12-12 08:55] VITALS: O2SAT 97
[2019-12-12] MEDS ORDERED: ESTRADIOL TAB 1 MG PO SCH (09:00)
[2019-12-12] MEDS ORDERED: MEDROXYPROGESTERONE ACETATE PO SCH (09:00)
[2019-12-12 12:44] VITALS: BP 129/82
--- NOTE | 2019-12-12 13:27 | DS ---
SUPERVISING PHYSICIAN: Beltran Wong MD DISCHARGE DIAGNOSIS: 1. Moderate hyponatremia with the patient on hydrochlorothiazide, possibly chronic, but etiology uncertain at this point with the patient showing good response with hypertonic saline as well as fluid restrictions. 2. Chest pain with no acute findings with the patient actually being without chest pains on admission. 3. Gastroesophageal reflux disease. 4. Diabetes mellitus, type 2. 5. Hypertension. 6. Hypothyroidism. 7. Chronic constipation. 8. Mild hypomagnesemia. HISTORY OF PRESENT ILLNESS: This is a 69-year-old female patient that presented to the Emergency Room with her on the date of admission secondary to complaints of chest discomfort and shortness of breath. She was obviously confused as to where she was and what was going on. She was actually mixing up timeframes and was very anxious and tremulous and with a gait that seemed to be unsteady. She does have a past history of being admitted for hyponatremia and does take Seroquel and hydrochlorothiazide. Her noted that her symptoms were similar to this on her last admission. Her lab workup did show that she had a significant hyponatremia with a sodium 120, serum osmolality 240 and magnesium 1.7. CBC was essentially unremarkable. Urinalysis unremarkable. Chest x-ray showed no acute process in the chest. She was started on hypertonic saline in the Emergency Room and was admitted to the hospital for treatment of hyponatremia. HOSPITAL COURSE: The patient was admitted for hyponatremia. She was placed on fluid restriction of 1500 mL per 24 hours. She completed 200 mL of 3% hypertonic saline and her BMP was checked when that was completed. She also had DVT prophylaxis with Lovenox. She was on sliding scale insulin and her home medications were restarted. She was given some magnesium in the Emergency Room. She was placed on the console manager and followed closely overnight. This morning, all of her symptoms from Emergency Room have subsided. She has had no complaints of chest pain. Her labs have improved. She will be discharged home today in stable condition. LABORATORY: Initial sodium 120 and today it is 131. Her initial potassium was slightly low. It dropped to 3.5 and 3.3 and now is at 3.8. Chloride initially was 83 and is now 102. Carbon dioxide was stable at 21. BUN was less than 5. Creatinine remained stable at 0.48. Glucose ran between 86 and 164. Calcium is stable at 8.5. Liver enzymes were within normal limits. MICROBIOLOGY: Influenza A and B per PCR were both negative. RADIOLOGY: Chest x-ray as per history of present illness. DISCHARGE PLAN: The patient will be discharged home in stable condition. She is to resume her previous diet as well as increase her activity as tolerated. She is to followup with Dr. Patricio Self, her primary care physician, within 1 to 2 weeks. She is to continue her home medications as ordered. It is recommended that Dr. Self review her Seroquel dosing as that could contribute to hyponatremia. I did change her lisinopril/hydrochlorothiazide dosing. Her lisinopril will remain the same at 20 mg daily and I have decreased her hydrochlorothiazide from 25 to 12.5 mg daily. I have also discussed fluid restrictions as well as using extra salt on her meals. She has no further questions. She is to return to the hospital or followup with Dr. Self for any problems or complications. DISCHARGE MEDICATIONS: 1. Medroxyprogesterone. 2. Estradiol. 3. Seroquel. 4. Pravastatin. 5. Metformin. 6. Lisinopril 20/hydrochlorothiazide 12.5. 7. Levocetirizine. #[id number] [facility]
[2019-12-12] MEDS ORDERED: CETIRIZINE HCL 10 MG TAB PO SCH (21:00)
== END 2019-12-12 12:30 | disposition home or self-care (01) ==
LOC: ER 07:24 → MS 09:21
PROVIDERS: ADMIT Nurse Practitioner Family; ATTEND Nurse Practitioner Acute Care
DX: E87.1 Hypo-osmolality and hyponatremia (principal); R07.89 Other chest pain; K21.9 Gastro-esophageal reflux disease without esophagitis; E11.9 Type 2 diabetes mellitus without complications; I10 Essential (primary) hypertension; E03.9 Hypothyroidism, unspecified; K59.09 Other constipation; E83.42 Hypomagnesemia; E87.6 Hypokalemia; E78.5 Hyperlipidemia, unspecified; G93.41 Metabolic encephalopathy; F41.9 Anxiety disorder, unspecified; I45.10 Unspecified right bundle-branch block; Z79.84 Long term (current) use of oral hypoglycemic drugs; Z79.899 Other long term (current) drug therapy
CPT/HCPCS: 96366 ×2; 96365; 96368; 96375; 96372; J2405; J1650; J7799 ×2; J3480 ×2; 85379; 83935; 80048 ×3; 82553; 80053; 82948 ×2; 36415 ×3; 81001; 85025; 82550; 83735; 85730; 85610; 84443; 84484; 83880; 36416 ×2; 83605; 71045; 94760; 99285; 93005; G0378; 87502